=== PATIENT | male | born 1990 | race African-American/Black ===

== ENCOUNTER 2019-06-13 08:12 | Emergency (ER) | payer OTHER ==
--- NOTE | 2019-06-13 08:27 | ED Physician Documentation ---
PD HPI MALE - Stated complaint Stated Complaint: MALE - History obtained from History obtained from: Patient - History of Present Illness Timing - onset: How many months ago (3) Timing - duration: Months (3) Timing - details: Gradual onset (he had onset of pain with tender small bumps/vesicles at dorsal base of penis. States had had intercourse with condoms during that time period. Continued with the tender area, and thought was just abrasion or such at the time. After 1-2 weeks, went to PMD with it and Dx with possible herpetic, by the appearance. Had culture test of the area that was negative for HSV, but had blood test suggesting recent/active infection. Rx with Valtrex 500 mg daily, and gabapentin 300 mg tid. He says pain is mild while on these meds, but gets very painful if not continuing the meds. Was seen again and had question of shingles instead of HSV. He says rash was only at base of penis, but has had burning pain around to sacral area and around rectal area and some tenderness in inguinal areas.), Waxing and waning Associated symptoms: Genital sore / lesion. No: Dysuria, Urinary frequency, Testiclar pain PD HPI MALE CONTRIB FACTORS: Sexually active Similar symptoms before: Has not had sx before Recently seen: Clinic Review of Systems Constitutional: denies: Fever, Chills, Myalgias Throat: denies: Oral lesions / sores, Sore throat : denies: Dysuria, Frequency, Incontinent, Hematuria, Discharge PD PAST MEDICAL HISTORY - Past Medical History Cardiovascular: None Musculoskeletal: None Derm: None - Present Medications Home Medications: Ambulatory Orders Medication Instructions Recorded Confirmed Acyclovir 1 applic TP TID #15 oint...g. 06/13/19 Ibuprofen [Motrin] 600 mg PO TID PRN #25 tab 06/13/19 Valacyclovir HCl [Valacyclovir] 1,000 mg PO TID #15 tablet 06/13/19 dexAMETHasone [Decadron] 4 mg PO DAILY #5 tablet 06/13/19 - Allergies Allergies/Adverse Reactions: Allergies Allergy/AdvReac Type Severity Reaction Status Date / Time No Known Drug Allergies Allergy Verified 06/13/19 08:30 PD ED PE NORMAL - Vitals Vital signs reviewed: Yes - General General: Alert and oriented X 3, Well developed/nourished - Abdomen Abdomen: Soft, Non tender - Male Male : Other (the penis is normal. At the dorsal base of the penis is a small cluster patch of small bumps c/w dried vesicles. No fluid noted at the area. Locally tender without redness. No rash noted on sacral area. Mild adenopathy at the inguinal area bilaterally. ) - Rectal Rectal: Deferred - Back Back: No CVA TTP - Derm Derm: Normal color, Warm and dry Results - Vitals Vitals: Vital Signs - 24 hr 06/13/19 08:21 Temperature 36.9 C Heart Rate 81 Respiratory 14 Rate Blood Pressure 139/77 H O2 Saturation 98 Oxygen O2 Source Room air PD MEDICAL DECISION MAKING - ED course Complexity details: reviewed results (there is not any fluid at the rash site, so would not be able to get valid PCR test. ), considered differential (the bumps and location sound like herpetic, HSV, but the pattern of pain c/w nerve root, so consider VZV. He has been on only Valacyclovir 500 mg daily, so may have been partly treated as that is only suppressive dose and not really active outbreak dose, pepper for shingles. ), d/w patient Departure - Departure Disposition: Home, Self Care Clinical Impression: Rash of genital area Condition: Stable Record reviewed to determine appropriate education?: Yes Follow-Up: Manda Izquierdo MD [Primary Care Provider] - [facility] [Provider Group] Prescriptions: Acyclovir 1 applic TP TID #15 oint...g. dexAMETHasone [Decadron] 4 mg PO DAILY #5 tablet Ibuprofen [Motrin] 600 mg PO TID PRN #25 tab PRN Reason: Pain Valacyclovir HCl [Valacyclovir] 1,000 mg PO TID #15 tablet Comments: I would suggest trying a more active outbreak dose of the valacyclovir. The 500 mg daily is more of a suppressive dose and may have been just not fully treating it. Valacyclovir 1000 mg 3 times a day for 5 days. In conjunction take Decadron steroid daily for 5 days to decrease the presumed nerve inflammation. Continue the gabapentin for the nerve irritation. You can use topical acyclovir in the rash area as well. Tylenol or ibuprofen as needed for pains. You could use ibuprofen 3 times a day. Follow-up with your primary care or dermatology if not improved well over the next week. Discharge Date/Time: 06/13/19 09:17
[2019-06-13 08:49] VITALS: BP 139/77
== END 2019-06-13 09:17 | disposition home or self-care (01) ==
LOC: ED 08:12
DX: N48.89 Other specified disorders of penis (principal); R21 Rash and other nonspecific skin eruption
CPT/HCPCS: 99283; 99284

== ENCOUNTER 2020-06-03 07:09 | Outpatient (CLI) | payer OTHER ==
--- NOTE | 2020-06-03 13:32 | MRI Report ---
PROCEDURE: Knee RT W/O INDICATIONS: RT KNEE PAIN TECHNIQUE: Noncontrast sagittal PD fast spin echo and T2 fast spin echo with fat saturation, sagittal 3-D gradie nt sequence with fat saturation; coronal T1 spin echo and PD fast spin echo with fat saturation, and axial PD fast spin echo with fat saturation through the knee. COMPARISON: None. FINDINGS: Image quality: Diagnostic. Menisci: The medial and lateral menisci demonstrate normal morphology and internal signal. The meni scal root ligaments appear intact. Cruciate ligaments: The anterior and posterior cruciate ligaments appear intact. Medial structures: The medial collateral ligament appears intact. The semimembranosus tendon insert ions appear intact. Visualized portions of the pes anserinus tendons appear normal. No abnormal bur milla fluid. Lateral structures: The fibular collateral ligament and biceps femoris tendon appear intact. The po pliteal tendon and the meniscofemoral ligaments appear intact. Anterior structures: The quadriceps and patellar tendons appear intact. Patellar alignment is chris l. No femoral trochlear dysplasia or ventral trochlear prominence. No edema in the infrapatellar fa t pad. Bones and cartilage: No bone marrow contusions or fractures. The cartilage of the medial and latera l femorotibial compartments, as well as the patellofemoral compartment, appears preserved in thicknes s. Joint space: There is physiologic knee joint fluid. No Nieves?s cyst. Normal appearing synovial pli are incidentally noted. IMPRESSION: 1. No acute internal derangement. Reviewed by: Aydin Rg MD on 06/03/2020 1:31 PM [facility] Approved by: Aydin Rg MD on 06/03/2020 1:31 PM PST Station ID: [id number]
--- NOTE | 2020-06-03 16:41 | MRI Report ---
PROCEDURE: Shoulder RT W/O INDICATIONS: RT SHLDR PAIN TECHNIQUE: Noncontrast oblique coronal T2 fast spin echo with fat saturation, oblique sagittal T1 spin echo and T2 fast spin echo with fat saturation, axial T1 spin echo and T2 fast spin echo with fat saturation t hrough the shoulder. COMPARISON: None. FINDINGS: Image quality: Excellent. Rotator cuff: There is partial-thickness tear of the distal infraspinatus tendon near the footprint i nvolving both articular and bursal surfaces. No tendon retraction or infraspinatus muscle atrophy. Th e supraspinatus and subscapularis tendons appear intact. Bones and bursae: No bone marrow contusions or fractures. There is mild acromioclavicular joint dege neration. The acromion demonstrates conventional anatomy, without an os acromiale. No pathologic hu bacromial/subdeltoid bursal fluid is present. Capsule and soft tissues: In the absence of intra-articular contrast, the labrum and glenohumeral li gaments appear intact. The long head of the biceps tendon demonstrates normal location and morpholog y. The rotator interval appears normal, without fibrosis. The coracohumeral ligament is normal in t hickness. IMPRESSION: 1. Partial-thickness tear of the infraspinatus tendon. No tendon retraction or infraspinous muscle at rophy. 2. Mild acromioclavicular joint degeneration. Reviewed by: Jason Obrien MD on 06/03/2020 4:39 PM PST Approved by: Jason Obrien MD on 06/03/2020 4:39 PM PST Station ID: [id number]
== END 2020-06-03 07:10 | disposition home or self-care (01) ==
LOC: DI 07:09
DX: M25.561 Pain in right knee (principal); M75.111 Incomplete rotator cuff tear or rupture of right shoulder, not specified as traumatic; M19.011 Primary osteoarthritis, right shoulder